=== PATIENT | male | born 1980 | race Caucasian/White ===

== ENCOUNTER 2017-05-30 19:13 | Emergency (ER) | payer SELFPAY ==
[~2017-05-30] VITALS: Ht 182.9 cm; Wt 155.4 kg
[~2017-05-30 19:13] MED LIST: ATEN25TA PO; OMEP20CA9 PO
[2017-05-30 19:17] VITALS: TEMP 37.1; Ht 182.9 cm; Wt 155.4 kg
--- NOTE | 2017-05-30 20:11 | EMERGENCY ROOM VISIT NOTE ---
History Report prepared by Malou: Bear Johnson Under the Supervision of: Dr. Rajesh Santana D.O. First contact with patient: 19:55 Chief Complaint: INFECTION Stated Complaint: BUMP IN PELVIC AREA, INFECTION NOT GETTING BETTER Nursing Triage Summary: pt states had a bump in right pelvic area, seen at [place] last friday and had ct scan told it was infection in lymph nodes and took antibitic and it was doing better now doing worse History of Present Illness The patient is a 37 year old male who presents to the Emergency Room with complaints of a possible constant infection that began a couple of days ago. He rates his discomfort as a 3/10 in severity. The patient states that he noticed a bump on his lower right pelvic region, which prompted him to visit his doctor at [place] last week. He states that he saw Dr. Elio Joseph who did a CT and blood work. The patient states that his results showed a lymph node infection. He states that he was put on antibiotics for a week twice a day. The patient states that he took all of his pills and his symptoms were resolving but admits the lump returned. He states that he has been experiencing intermittent diaphoresis, but denies any fevers or chills. The patient admits that he takes Prilosec daily. He admits to right wrist surgery and a chronic rash that has been present for five years. He denies any allergies to medications and any other pertinent medical history. Source of History: patient Onset: a couple of days ago Position: other (right pelvis) Symptom Intensity: 3/10 Quality: other (infection) Timing: constant Modifying Factors (Relieving): other (antibiotics) Associated Symptoms: + diaphoresis, No fevers, No chills Review of Systems See HPI for pertinent positives & negatives. A total of 10 systems reviewed and were otherwise negative. Past Medical & Surgical Medical Problems: (1) Lymphadenopathy Surgical Problems: (1) History of carpal tunnel surgery of right wrist Family History Patient reports no known family medical history. Social History Smoking Status: Current Some Day Smoker Alcohol Use: occasionally Drug Use: none Marital Status: single Housing Status: lives with family Occupation Status: employed Current/Historical Medications Scheduled Cephalexin Monohydrate (Keflex), 500 MG PO QID Omeprazole (Prilosec), 20 MG PO PRN Allergies Coded Allergies: No Known Allergies (Unverified , 05/30/17) Physical Exam Vital Signs Date Time Temp Pulse Resp B/P (MAP) Pulse Ox O2 Delivery O2 Flow Rate FiO2 05/30/17 23:06 78 20 128/76 99 05/30/17 21:52 72 20 148/97 97 Room Air 05/30/17 19:17 37.1 107 18 162/95 97 Room Air Physical Exam GENERAL: Patient is awake, alert, and in no acute distress. Patient is resting comfortably and showing no signs of anxiety EYES: The conjunctivae are clear. The pupils are round and reactive. EARS, NOSE, MOUTH AND THROAT: The nose is without any evidence of any deformity. Mucous membranes are moist tongue is midline NECK: The neck is nontender and supple. RESPIRATORY: Normal respiratory effort is noted there is no evidence of wheezing rhonchi or rales CARDIOVASCULAR: Regular rate and rhythm noted there no murmurs rubs or gallops normal S1 normal S2 GASTROINTESTINAL: The abdomen is soft. Bowel sounds are present in all quadrants. Abdomen is nontender MUSCULOSKELETAL/EXTREMITIES: There is no evidence of gross deformity full range of motion is noted in the hips and shoulders SKIN: There is no obvious evidence of any rash. There are no petechiae, pallor or cyanosis noted. No pedal edema. No signs of cellulites or tenial infection on his feet. Tenderness right groin consistent with lymphadenopathy. Mild erythema overlying. NEUROLOGIC: Patient is awake alert and oriented x3 strength is symmetric patellar reflexes are 2+ bilaterally Medical Decision & Procedures ER Provider Diagnostic Interpretation: X-ray results as stated below per interpretation by me and the radiologist. R EXTREMITY NONVASCULAR LIMITED HISTORY: 37 years-old Male right groin swelling, ?lymph node acute swelling of the right groin region with concern for possible adenopathy. COMPARISON: None available TECHNIQUE: Multiple real-time sonographic images of the right groin soft tissues were obtained assessing grayscale appearance and color flow. FINDINGS: Within the area of concern within the right groin a lobulated hypoechoic structure is seen suggesting enlarged inguinal lymph node or to subadjacent lymph nodes overall measuring 3.3 x 1.2 x 2.5 cm with mildly echogenic vascular central hilum. No additional mass, collection or focal abnormality identified within the area of concern. IMPRESSION: Within the area of palpable concern within the right groin there is a lobulated single or two adjacent lymph nodes overall measuring 3.3 x 1.2 x 2.5 cm. This would favor a reactive or physiologic etiology, however follow-up recommended to exclude progressive process. The above report was generated using voice recognition software. It may contain grammatical, syntax or spelling errors. Electronically signed by: Tyler Alexis M.D. 05/30/2017 9:39 PM Dictated Date/Time: 05/30/2017 9:34 PM Laboratory Results 05/30/17 20:25 Red Blood Count 4.34, Mean Corpuscular Volume 88.9, Mean Corpuscular Hemoglobin 30.9, Mean Corpuscular Hemoglobin Concent 34.7, Mean Platelet Volume 10.9, Neutrophils (%) (Auto) 57.5, Lymphocytes (%) (Auto) 30.2, Monocytes (%) (Auto) 9.4, Eosinophils (%) (Auto) 2.7, Basophils (%) (Auto) 0.1, Neutrophils # (Auto) 3.98, Lymphocytes # (Auto) 2.09, Monocytes # (Auto) 0.65, Eosinophils # (Auto) 0.19, Basophils # (Auto) 0.01 05/30/17 20:25 Test 05/30/17 20:25 05/30/17 22:00 White Blood Count 6.93 K/uL (4.8-10.8) Red Blood Count 4.34 M/uL (4.7-6.1) Hemoglobin 13.4 g/dL (14.0-18.0) Hematocrit 38.6 % (42-52) Mean Corpuscular Volume 88.9 fL (80-100) Mean Corpuscular Hemoglobin 30.9 pg (25-34) Mean Corpuscular Hemoglobin Concent 34.7 g/dl (32-36) Platelet Count 306 K/uL (130-400) Mean Platelet Volume 10.9 fL (7.4-10.4) Neutrophils (%) (Auto) 57.5 % Lymphocytes (%) (Auto) 30.2 % Monocytes (%) (Auto) 9.4 % Eosinophils (%) (Auto) 2.7 % Basophils (%) (Auto) 0.1 % Neutrophils # (Auto) 3.98 K/uL (1.4-6.5) Lymphocytes # (Auto) 2.09 K/uL (1.2-3.4) Monocytes # (Auto) 0.65 K/uL (0.11-0.59) Eosinophils # (Auto) 0.19 K/uL (0-0.5) Basophils # (Auto) 0.01 K/uL (0-0.2) RDW Standard Deviation 39.4 fL (36.4-46.3) RDW Coefficient of Variation 12.2 % (11.5-14.5) Immature Granulocyte % (Auto) 0.1 % Immature Granulocyte # (Auto) 0.01 K/uL (0.00-0.02) Erythrocyte Sedimentation Rate 46 mm/hr (0-14) Anion Gap 5.0 mmol/L (3-11) Est Creatinine Clear Calc Drug Dose 194.4 ml/min Estimated GFR () 132.3 Estimated GFR (Non- 114.1 BUN/Creatinine Ratio 15.6 (10-20) Calcium Level 9.4 mg/dl (8.5-10.1) Total Bilirubin 0.3 mg/dl (0.2-1) Direct Bilirubin < 0.1 mg/dl (0-0.2) Aspartate Amino Transf (AST/SGOT) 21 U/L (15-37) Alanine Aminotransferase (ALT/SGPT) 32 U/L (12-78) Alkaline Phosphatase 136 U/L (45-117) C-Reactive Protein 2.08 mg/dl (0-0.29) Total Protein 8.3 gm/dl (6.4-8.2) Albumin 4.1 gm/dl (3.4-5.0) Lyme Disease IgG Antibody NEG (NEG) Lyme Disease IgM Antibody NEG (NEG) Urine Color YELLOW Urine Appearance CLEAR (CLEAR) Urine pH 7.0 (4.5-7.5) Urine Specific [place] 1.014 (1.000-1.030) Urine Protein NEG (NEG) Urine Glucose (UA) NEG (NEG) Urine Ketones NEG (NEG) Urine Occult Blood NEG (NEG) Urine Nitrite NEG (NEG) Urine Bilirubin NEG (NEG) Urine Urobilinogen NEG (NEG) Urine Leukocyte Esterase NEG (NEG) Laboratory results per my review. Medications Administered Medications (Trade) Dose Ordered Sig/Rafal Route Start Time Stop Time Status Last Admin Dose Admin Cephalexin Monohydrate (Keflex 500MG Home Pack) 1 homepack NOW ONCE PO 05/30/17 22:30 05/30/17 22:31 DC 05/30/17 22:57 1 HOMEPACK Cephalexin Monohydrate (Keflex Cap) 500 mg NOW ONCE PO 05/30/17 22:30 05/30/17 22:31 DC 05/30/17 22:57 500 MG ED Course 1952: The patient was evaluated in room B06. A complete history and physical examination were performed. 2229: Ordered Keflex Cap 500 mg PO, Cephalexin Monohydrate 1 homepack PO. 2234: Upon reevaluation, the patient is resting comfortably. I discussed the results and treatment plan with the patient. He verbalized agreement of the treatment plan. The patient was discharged home. Medical Decision Differential diagnosis: Etiologies such as cellulitis, abscess, MRSA infection, DVT, necrotizing fasciitis, dermatitis, drug eruption, as well as others were entertained. Nursing notes reviewed. The patient is a 37-year-old male who presented to the emergency department for an evaluation of swelling in his right groin. There was mild erythema overlying the area. His laboratory and radiographic studies appear to be consistent with lymphadenopathy in the right groin. I discussed patient's laboratory and radiographic studies with him. He was given follow-up information with the on- call general surgeon. He is also started on another course of an antibiotic. He was reevaluated multiple times. He was encouraged to call the surgeon to schedule follow-up appointment. He was also encouraged to continue all medications as prescribed and return to the emergency apartment immediately if symptoms change worsen or the need arises. Medication Reconcilliation Current Medication List: was personally reviewed by me Blood Pressure Screening Patient's blood pressure: Elevated blood pressure Blood pressure disposition: Elevated BP felt to be situational Impression Primary Impression: Lymphadenopathy Scribe Attestation The scribe's documentation has been prepared under my direction and personally reviewed by me in its entirety. I confirm that the note above accurately reflects all work, treatment, procedures, and medical decision making performed by me. Departure Information Dispostion Home / Self-Care Prescriptions Cephalexin Monohydrate (KEFLEX) 500 Mg Cap 500 MG PO QID, #40 CAP Prov: Rajesh Santana, DO 05/30/17 Referrals No Doctor, Assigned (PCP) Forms HOME CARE DOCUMENTATION FORM, IMPORTANT VISIT INFORMATION, WORK / SCHOOL INSTRUCTIONS Patient Instructions My [facility] Additional Instructions Call the surgeon to schedule follow-up appointment. Call your family to schedule a follow-up appointment versus possible. Continue using Motrin and Tylenol for pain. Continue all other medications as prescribed.
[2017-05-30 20:38] LABS: BASO % 0.1 %; BASO ABS # 0.01 K/uL (0-0.2); COMPLETE YES; EOS % 2.7 %; HEMATOCRIT 38.6 % (42-52); IG% 0.1 %; LYMPH % 30.2 %; LYMPH ABS # 2.09 K/uL (1.2-3.4); MEAN CELL VOLUME 88.9 fL (80-100); MEAN CORPUSCULAR HEMOGLOBIN 30.9 pg (25-34); MEAN CORPUSCULAR HGB CONC 34.7 g/dl (32-36); MEAN PLATELET VOLUME 10.9 fL (7.4-10.4); MONO % 9.4 %; NEUT % 57.5 %; PLATELET COUNT 306 K/uL (130-400); RED BLOOD COUNT 4.34 M/uL (4.7-6.1); WHITE BLOOD COUNT 6.93 K/uL (4.8-10.8)
[2017-05-30 21:00] LABS: ALT/SGPT 32 U/L (12-78); AST/SGOT 21 U/L (15-37); BLOOD UREA NITROGEN 13 mg/dl (7-18); BUN/CREATININE RATIO 15.6 (10-20); C-REACTIVE PROTEIN 2.08 mg/dl (0-0.29); CALCIUM 9.4 mg/dl (8.5-10.1); CARBON DIOXIDE 30 mmol/L (21-32); CHLORIDE 104 mmol/L (98-107); GLUCOSE 90 mg/dl (70-99); POTASSIUM 3.6 mmol/L (3.5-5.1); SODIUM 139 mmol/L (136-145)
[2017-05-30 21:02] LABS: ALKALINE PHOSPHATASE 136 U/L (45-117)
--- NOTE | 2017-05-30 21:40 | DIAGNOSTIC IMAGING REPORT ---
R EXTREMITY NONVASCULAR LIMITED HISTORY: 37 years-old Male right groin swelling, ?lymph node acute swelling of the right groin region with concern for possible adenopathy. COMPARISON: None available TECHNIQUE: Multiple real-time sonographic images of the right groin soft tissues were obtained assessing grayscale appearance and color flow. FINDINGS: Within the area of concern within the right groin a lobulated hypoechoic structure is seen suggesting enlarged inguinal lymph node or to subadjacent lymph nodes overall measuring 3.3 x 1.2 x 2.5 cm with mildly echogenic vascular central hilum. No additional mass, collection or focal abnormality identified within the area of concern. IMPRESSION: Within the area of palpable concern within the right groin there is a lobulated single or two adjacent lymph nodes overall measuring 3.3 x 1.2 x 2.5 cm. This would favor a reactive or physiologic etiology, however follow-up recommended to exclude progressive process. The above report was generated using voice recognition software. It may contain grammatical, syntax or spelling errors. Electronically signed by: Tyler Alexis M.D. 05/30/2017 9:39 PM Dictated Date/Time: 05/30/2017 9:34 PM
[2017-05-30 21:44] LABS: LYME DISEASE AB IGG NEG (NEG); LYME DISEASE AB IGM NEG (NEG)
[2017-05-30] MEDS ORDERED: CEPHALEXIN MONOHYDRATE 250 MG CAP PO ONE (22:30)
[2017-05-30] MEDS ORDERED: CEPHALEXIN 500MG HOME PACK 1 EA BTL PO ONE (22:30)
[2017-05-30] MEDS ORDERED: CEPH500C2 PO (22:31)
[2017-05-30 22:36] LABS: URINE APPEARANCE CLEAR (CLEAR); URINE BILIRUBIN NEG (NEG); URINE COLOR YELLOW; URINE NITRITE NEG (NEG); URINE SPECIFIC GRAVITY 1.014 (1.000-1.030); UROBILINOGEN NEG (NEG)
[2017-05-30 22:42] LABS: MANUAL MICROSCOPIC REQUIRED? NO; REVIEW REQ? NO
[2017-05-30 23:06] VITALS: BP 128/76; PULSE 78; O2SAT 99
== END 2017-05-30 23:08 | disposition home or self-care (01) ==
LOC: C.EDB 19:15
DX: R59.1 Generalized enlarged lymph nodes (principal); F17.200 Nicotine dependence, unspecified, uncomplicated